=== PATIENT | male | born 1950 | race Caucasian/White ===

== ENCOUNTER 2020-10-05 20:53 | Inpatient (IN) | payer MEDICARE, OTHER ==
[~2020-10-05] VITALS: Ht 177.8 cm; Wt 92.0 kg
--- NOTE | 2020-10-05 21:05 | NUR ---
PER VEBAL ORDERS BY DR RIVERA CONTINUE LEVOPHED GTT STARTED BY EMS ON PERIPERAL LINE UNTIL ABLE TO OBTAIN CENTRAL LINE AND MEDICATION FROM PHARMACY.
--- NOTE | 2020-10-05 21:05 | NUR ---
COIVD AND FLU NEGATIVE AT READER
[2020-10-05] MEDS ORDERED: LIDOCAINE-MPF 1%, 5ML ONE (21:10)
--- NOTE | 2020-10-05 21:17 | NUR ---
LATE ENTRY. PT TRANSFER FROM [facility] FOR CHOLEYCYSITIS. PER EMS REPORT PT FOUND ALTERED BY AT HOME WITH TEMP OF 106 AND COMPLAINTS OF FATIGUE, MUSCLE ACHES, N/V, AND FEVER/CHILLS. LEVOPHED GTT STARTED BY EMS FOR LOW BP, 32MCG/ML UPON ARRIVAL TRANSFUSING THROUGH PIV. PT RECEIVED 1.5 G TYLENOL, 1 G ROCEPHIN, 4.5 G PIPERCILLIN, 2 L NS BOLUS, 2 L LR BOLUS, AND TOTAL 8 MG ZOFRAN AT PREVIOUS FACILITY. PT ALSO HAD FRYE PLACED. PT IS ANSWERING ORIENTATION QUESTIONS APPROPRIATELY AND FOLLOWING COMMANDS.
--- NOTE | 2020-10-05 21:29 | NUR ---
Henny [phone]
[2020-10-05] MEDS ORDERED: SODIUM CHLORIDE FLUSH 10ML SYR IVF ONE (21:30)
[2020-10-05] MEDS ORDERED: NOREPINEPHRINE 8 MG in SODIUM CHLORIDE 0.9% 242 ML IV PRN (21:30)
[2020-10-05] MEDS ORDERED: SODIUM CHLORIDE 0.9% 1,000ML IVBOLUS ONE (21:30)
[2020-10-05 21:45] LABS: MEAN CORPUSCULAR HEMOGLOBIN 31.7 pg (27.5-34.5); MEAN CORPUSCULAR HGB CONC 33.7 g/dL (33.2-36.2); PLATELET COUNT 193 x10^3/uL (130-400); RED BLOOD COUNT 3.79 x10^6/uL (4.38-5.82); RED CELL DISTRIBUTION WIDTH 13.1 % (9.4-14.8)
--- NOTE | 2020-10-05 21:54 | NUR ---
PT TOLERATED CENTRAL LINE PLACEMENT WELL, NO DISTRESS. PT CONNECTED TO [employer] MONITOR. CALL LIGHT WITHIN REACH
[2020-10-05 21:55] LABS: MD YES
--- NOTE | 2020-10-05 21:55 | NUR ---
US AT BEDSIDE
[2020-10-05 21:57] LABS: ALANINE AMINOTRANSFERASE 129 U/L (12-78); ALBUMIN 2.2 g/dL (3.4-5.0); ANION GAP 10 mmol/L (5-15); CALCIUM 7.5 mg/dL (8.5-10.1); CHLORIDE 121 mmol/L (98-107); CREATININE 3.59 mg/dL (0.7-1.3)
[2020-10-05 21:59] LABS: ALKALINE PHOSPHATASE 270 U/L (45-117); BILIRUBIN,TOTAL 4.4 mg/dL (0.2-1.0); TOTAL PROTEIN 5.1 g/dL (6.4-8.2)
--- NOTE | 2020-10-05 22:00 | NUR ---
PER ERP DR RIVERA RUN NS AT 200 MLS/HR.
--- NOTE | 2020-10-05 22:17 | NUR ---
XRAY IN ROOM
[2020-10-05 22:25] LABS: BAND#(MANUAL) 5.47 x10^3/uL; BANDS%(MANUAL) 24 % (0-7); LYMPH#(MANUAL) 0.23 x10^3/uL (1-3.4); LYMPHS% (MANUAL) 1 % (22-44); METAMYELOCYTES# (MANUAL) 0.23 x10^3/uL (0-0); METAMYELOCYTES% (MANUAL) 1 % (0-1); MONOS#(MANUAL) 0.68 x10^3/uL (0.3-2.7); MONOS% (MANUAL) 3 % (2-9); SEG#(MANUAL) 16.19 x10^3/uL (1.8-6.8); SEGS% (MANUAL) 71 % (42-75)
[2020-10-05 22:26] LABS: <PLATELET ESTIMATE> ADEQUATE; <PLT MORPHOLOGY> NORMAL PLT MORPH; <RBC MORPHOLOGY> NORMAL
--- NOTE | 2020-10-05 22:28 | NUR ---
PER DR NICOLE CHAND TO USE CENTRAL LINE. LEVOPHED GTT NOW INFUSING THROUGH CENTRAL LINE
[2020-10-05 22:36] LABS: INTERNATIONAL NORMALIZED RATIO 1.2 (0.93-1.1); PROTHROMBIN TIME 12.7 Seconds (9.6-11.5)
[2020-10-05] MEDS ORDERED: PIPERACILLIN/TAZO/PMX 3.375GM 50 ML ONE (23:11)
[2020-10-05] MEDS ORDERED: PIPERACILLIN/TAZO/PMX 3.375GM 50 ML IV ONE (23:30)
--- NOTE | 2020-10-05 23:43 | NUR ---
PT SLEEPING, NO NEEDS AT THIS TIME. CALL LIGHT WITHIN REACH
[2020-10-06] MEDS ORDERED: morphine SULFATE 10 MG/ML, 1ML IVPush PRN
[2020-10-06] MEDS ORDERED: LACTATED RINGERS 1,000 ML IV SCH
[2020-10-06] MEDS ORDERED: PHARMACY MAY ADJ FOR RENAL FX MC PRN
[2020-10-06] MEDS ORDERED: NOREPINEPHRINE 8 MG in SODIUM CHLORIDE 0.9% 242 ML IV PRN
[2020-10-06] MEDS ORDERED: ONDANSETRON 2MG/ML, 2ML IVPush PRN
[2020-10-06] MEDS ORDERED: ACETAMINOPHEN 325 MG TABLET PO PRN
--- NOTE | 2020-10-06 00:07 | NUR ---
REPORT GIVEN TO SHARRI LLAMAS
[2020-10-06 01:01] VITALS: BP 94/62
[2020-10-06 04:41] LABS: MEAN CORPUSCULAR HEMOGLOBIN 31.8 pg (27.5-34.5); MEAN CORPUSCULAR HGB CONC 33.8 g/dL (33.2-36.2); PLATELET COUNT 252 x10^3/uL (130-400); RED BLOOD COUNT 3.87 x10^6/uL (4.38-5.82); RED CELL DISTRIBUTION WIDTH 13.2 % (9.4-14.8)
[2020-10-06 04:52] LABS: CHLORIDE 124 mmol/L (98-107)
[2020-10-06 04:58] LABS: ALANINE AMINOTRANSFERASE 153 U/L (12-78); ALBUMIN 2.4 g/dL (3.4-5.0); ALKALINE PHOSPHATASE 259 U/L (45-117); ANION GAP 6 mmol/L (5-15); BILIRUBIN,TOTAL 4.7 mg/dL (0.2-1.0); CALCIUM 7.6 mg/dL (8.5-10.1); CREATININE 3.55 mg/dL (0.7-1.3); TOTAL PROTEIN 5.5 g/dL (6.4-8.2)
[2020-10-06] MEDS: PIPERACILLIN/TAZO/PMX 3.375GM 50 ML IV SCH ×4 (05:15→23:18)
[2020-10-06 05:59] LABS: MD YES
[2020-10-06 06:01] LABS: LYMPH#(MANUAL) 0.48 x10^3/uL (1-3.4); LYMPHS% (MANUAL) 1 % (22-44); METAMYELOCYTES# (MANUAL) 0.48 x10^3/uL (0-0); METAMYELOCYTES% (MANUAL) 1 % (0-1); SEGS% (MANUAL) 80 % (42-75)
[2020-10-06 06:02] LABS: BANDS%(MANUAL) 15 % (0-7); MONOS#(MANUAL) 1.44 x10^3/uL (0.3-2.7); MONOS% (MANUAL) 3 % (2-9)
[2020-10-06 06:03] LABS: <PLATELET ESTIMATE> ADEQUATE; <PLT MORPHOLOGY> NORMAL PLT MORPH; <RBC MORPHOLOGY> NORMAL; PMNS WITH VACUOLES 1+
[2020-10-06] MEDS: SODIUM BICARBONATE 8.4% 150 MEQ in DEXTROSE 5% 1,000 ML IV SCH ×3 (06:26→22:35)
[2020-10-06 08:00] VITALS: BP 123/49
[2020-10-06] MEDS ORDERED: MAGNESIUM SULFATE PMX 2GM/50ML 50 ML IV ONE (08:30)
[2020-10-06 14:32] VITALS: BP 101/59
[2020-10-07 04:33] LABS: MEAN CORPUSCULAR HEMOGLOBIN 31.9 pg (27.5-34.5); MEAN CORPUSCULAR HGB CONC 34.7 g/dL (33.2-36.2); MEAN PLATELET VOLUME 9.5 fL (7.4-10.4); PLATELET COUNT 162 x10^3/uL (130-400); RED BLOOD COUNT 3.43 x10^6/uL (4.38-5.82); RED CELL DISTRIBUTION WIDTH 13.1 % (9.4-14.8)
[2020-10-07 04:48] LABS: ALANINE AMINOTRANSFERASE 113 U/L (12-78); ANION GAP 5 mmol/L (5-15); CALCIUM 7.5 mg/dL (8.5-10.1); CHLORIDE 116 mmol/L (98-107); CREATININE 3.27 mg/dL (0.7-1.3)
[2020-10-07 04:50] LABS: ALKALINE PHOSPHATASE 195 U/L (45-117); BILIRUBIN,TOTAL 3.1 mg/dL (0.2-1.0); TOTAL PROTEIN 5.2 g/dL (6.4-8.2)
[2020-10-07] MEDS: PIPERACILLIN/TAZO/PMX 3.375GM 50 ML IV SCH ×4 (04:57→22:55)
[2020-10-07 05:39] LABS: MD YES
[2020-10-07 05:43] LABS: ANISOCYTOSIS 1+; BAND#(MANUAL) 2.93 x10^3/uL; BANDS%(MANUAL) 12 % (0-7); BASOS#(MANUAL) 0.24 x10^3/uL (0-0.1); BASOS% (MANUAL) 1 % (0-1); EOS#(MANUAL) 0.24 x10^3/uL (0.0-0.4); EOS% (MANUAL) 1 % (1-7); LYMPH#(MANUAL) 0.98 x10^3/uL (1-3.4); LYMPHS% (MANUAL) 4 % (22-44); METAMYELOCYTES# (MANUAL) 0.24 x10^3/uL (0-0); METAMYELOCYTES% (MANUAL) 1 % (0-1); MONOS#(MANUAL) 0.73 x10^3/uL (0.3-2.7); MONOS% (MANUAL) 3 % (2-9); SEG#(MANUAL) 19.03 x10^3/uL (1.8-6.8); SEGS% (MANUAL) 78 % (42-75)
[2020-10-07 05:44] LABS: <PLATELET ESTIMATE> ADEQUATE; PMNS WITH VACUOLES 1+
[2020-10-07 05:45] LABS: <PLT MORPHOLOGY> NORMAL PLT MORPH; TOXIC GRAN 1+
[2020-10-07] MEDS: SODIUM BICARBONATE 8.4% 150 MEQ in DEXTROSE 5% 1,000 ML IV SCH (05:54)
[2020-10-07] MEDS ORDERED: LACTATED RINGERS 1,000 ML IV SCH (06:30)
[2020-10-07] MEDS ORDERED: BUPIVACAINE/PF 0.5% ONE (10:47)
[2020-10-07] MEDS ORDERED: EPINEPHRINE 1 MG/ML, 1ML ONE (10:47)
[2020-10-07] MEDS ORDERED: FENTANYL PF 250 MCG/5ML ONE (11:05)
[2020-10-07] MEDS ORDERED: DEXAMETHASONE 4 MG/ML, 1ML ONE (11:22)
[2020-10-07] MEDS ORDERED: SUGAMMADEX 200 MG/2 ML IVPush ONE (11:22)
[2020-10-07] MEDS ORDERED: PHENYLEPHRINE 10 MG/ML ONE (11:22)
[2020-10-07] MEDS ORDERED: ALBUMIN HUMAN 5% 500 ML ONE (12:36)
[2020-10-07] MEDS ORDERED: PROMETHAZINE 25 MG/ML, 1ML IVPush PRN (13:00)
[2020-10-07] MEDS ORDERED: ACETAMINOPHEN 325 MG TABLET PO PRN (13:00)
[2020-10-07] MEDS ORDERED: ALBUTEROL SULFATE 2.5 MG/3 ML NPPB PRN (13:00)
[2020-10-07] MEDS ORDERED: MEPERIDINE/PF 25MG/0.5ML IVPush PRN (13:00)
[2020-10-07] MEDS ORDERED: HYDROmorphone 1 MG/ML, 1ML INJ IVPush PRN (13:00)
[2020-10-07] MEDS ORDERED: LORazepam 2 MG/ML, 1ML IVPush PRN (13:00)
[2020-10-07] MEDS ORDERED: LABETALOL 5MG/ML, 20ML IV PRN (13:00)
[2020-10-07] MEDS ORDERED: hydrALAzine 20 MG/ML, 1ML IV PRN (13:00)
[2020-10-07] MEDS ORDERED: OXYcodone 5 MG/5 ML ORAL.SOL UDC PO PRN (13:00)
[2020-10-07] MEDS ORDERED: GLYCOPYRROLATE 0.2MG/1ML, 5ML ONE (13:13)
[2020-10-07] MEDS ORDERED: CEFAZOLIN 1,000 MG ONE (13:13)
[2020-10-07] MEDS ORDERED: ONDANSETRON 2MG/ML, 2ML ONE (13:13)
[2020-10-07] MEDS ORDERED: ROCURONIUM 10MG/ML,5ML ONE (13:13)
[2020-10-07] MEDS ORDERED: PROPOFOL 10 MG/ML, 20ML ONE (13:13)
[2020-10-07] MEDS ORDERED: NEOSTIGMINE 1 MG/ML, 10ML ONE (13:13)
[2020-10-07] MEDS ORDERED: FENTANYL PF 100 MCG/2ML ONE ×2 (13:39→14:05)
[2020-10-07] MEDS: FENTANYL PF 100 MCG/2ML IV PRN ×3 (13:43→14:07)
[2020-10-07 14:02] VITALS: BP 129/72
[2020-10-07] MEDS ORDERED: OXYcodone 5 MG/5 ML ORAL.SOL UDC ONE (14:08)
[2020-10-07 14:17] VITALS: BP 126/70
[2020-10-07] MEDS: OXYcodone IR 5MG TABLET PO PRN ×2 (16:06→20:32)
[2020-10-07 16:30] VITALS: BP 123/73
[2020-10-07 17:30] VITALS: BP 122/78
[2020-10-08 04:50] LABS: BASOPHILS % (AUTO) 0 % (0-1); EOSINOPHILS % (AUTO) 0 % (1-7); LYMPHOCYTES % (AUTO) 2 % (22-44); MEAN CORPUSCULAR HEMOGLOBIN 31.9 pg (27.5-34.5); MEAN CORPUSCULAR HGB CONC 34.8 g/dL (33.2-36.2); MEAN PLATELET VOLUME 9.7 fL (7.4-10.4); MONOCYTES % (AUTO) 2 % (2-9); NEUTROPHILS % (AUTO) 96 % (42-75); PLATELET COUNT 153 x10^3/uL (130-400); RED BLOOD COUNT 3.29 x10^6/uL (4.38-5.82); RED CELL DISTRIBUTION WIDTH 14.2 % (9.4-14.8)
[2020-10-08] MEDS: PIPERACILLIN/TAZO/PMX 3.375GM 50 ML IV SCH ×2 (04:50→11:17)
[2020-10-08 05:04] LABS: CHLORIDE 112 mmol/L (98-107)
[2020-10-08 05:08] LABS: ALANINE AMINOTRANSFERASE 129 U/L (12-78); ALBUMIN 2.3 g/dL (3.4-5.0); ALKALINE PHOSPHATASE 171 U/L (45-117); ANION GAP 9 mmol/L (5-15); BILIRUBIN,TOTAL 2.5 mg/dL (0.2-1.0); CALCIUM 8.1 mg/dL (8.5-10.1); CREATININE 2.82 mg/dL (0.7-1.3); TOTAL PROTEIN 5.7 g/dL (6.4-8.2)
[2020-10-08 05:41] LABS: MD YES
[2020-10-08 05:43] LABS: BAND#(MANUAL) 1.38 x10^3/uL; BANDS%(MANUAL) 9 % (0-7); LYMPH#(MANUAL) 0.31 x10^3/uL (1-3.4); LYMPHS% (MANUAL) 2 % (22-44); SEG#(MANUAL) 13.62 x10^3/uL (1.8-6.8); SEGS% (MANUAL) 89 % (42-75)
[2020-10-08 05:44] LABS: <PLATELET ESTIMATE> ADEQUATE; <PLT MORPHOLOGY> NORMAL PLT MORPH; <RBC MORPHOLOGY> NORMAL
[2020-10-08] MEDS: OXYcodone IR 5MG TABLET PO PRN ×2 (11:16→17:10)
[2020-10-08 15:41] VITALS: BP 156/85
[2020-10-08] MEDS: CEFTRIAXONE PMX 2GM/50ML 50 ML IVPB SCH (17:06)
[2020-10-08 19:43] VITALS: BP 119/74
[2020-10-09 00:45] VITALS: BP 174/89
[2020-10-09 01:02] VITALS: BP 137/68
[2020-10-09 05:41] LABS: ALBUMIN 2.2 g/dL (3.4-5.0); ANION GAP 5 mmol/L (5-15); CALCIUM 8.4 mg/dL (8.5-10.1); CHLORIDE 114 mmol/L (98-107)
[2020-10-09 05:44] LABS: ALANINE AMINOTRANSFERASE 113 U/L (12-78); ALKALINE PHOSPHATASE 195 U/L (45-117); BILIRUBIN,TOTAL 1.7 mg/dL (0.2-1.0); CREATININE 2.44 mg/dL (0.7-1.3); TOTAL PROTEIN 5.7 g/dL (6.4-8.2)
[2020-10-09 05:53] LABS: MEAN CORPUSCULAR HEMOGLOBIN 31.2 pg (27.5-34.5); MEAN CORPUSCULAR HGB CONC 34.1 g/dL (33.2-36.2); MEAN PLATELET VOLUME 10.4 fL (7.4-10.4); PLATELET COUNT 152 x10^3/uL (130-400); RED BLOOD COUNT 3.16 x10^6/uL (4.38-5.82); RED CELL DISTRIBUTION WIDTH 13.8 % (9.4-14.8)
[2020-10-09 06:59] LABS: MD YES
[2020-10-09 07:02] LABS: BAND#(MANUAL) 0.16 x10^3/uL; BANDS%(MANUAL) 1 % (0-7); HYPOCHROMIA 1+; LYMPH#(MANUAL) 0.49 x10^3/uL (1-3.4); LYMPHS% (MANUAL) 3 % (22-44); MONOS#(MANUAL) 0.16 x10^3/uL (0.3-2.7); MONOS% (MANUAL) 1 % (2-9); SEG#(MANUAL) 15.39 x10^3/uL (1.8-6.8); SEGS% (MANUAL) 95 % (42-75)
[2020-10-09 07:03] LABS: STOMATOCYTES 1+
[2020-10-09 07:04] LABS: <PLATELET ESTIMATE> ADEQUATE; <PLT MORPHOLOGY> NORMAL PLT MORPH
[2020-10-09 08:55] VITALS: BP 127/73
[2020-10-09 12:40] VITALS: BP 136/88
[2020-10-09] MEDS: CEFTRIAXONE PMX 2GM/50ML 50 ML IVPB SCH (17:02)
[2020-10-09 20:53] VITALS: BP 131/76
[2020-10-10 02:05] VITALS: BP 147/85
[2020-10-10 08:00] VITALS: BP 134/78
[2020-10-10 14:45] VITALS: BP 130/84
[2020-10-10] MEDS: CEFTRIAXONE PMX 2GM/50ML 50 ML IVPB SCH (16:38)
[2020-10-10 20:29] VITALS: BP 143/77
[2020-10-11 01:21] VITALS: BP 138/80
[2020-10-11 07:12] LABS: MEAN CORPUSCULAR HEMOGLOBIN 31.6 pg (27.5-34.5); MEAN CORPUSCULAR HGB CONC 34.6 g/dL (33.2-36.2); MEAN PLATELET VOLUME 9.8 fL (7.4-10.4); PLATELET COUNT 173 x10^3/uL (130-400); RED CELL DISTRIBUTION WIDTH 13.5 % (9.4-14.8)
[2020-10-11 07:25] LABS: ALANINE AMINOTRANSFERASE 147 U/L (12-78); ALBUMIN 2.5 g/dL (3.4-5.0); ANION GAP 7 mmol/L (5-15); CALCIUM 7.9 mg/dL (8.5-10.1); CHLORIDE 111 mmol/L (98-107); CREATININE 1.64 mg/dL (0.7-1.3)
[2020-10-11 07:28] LABS: ALKALINE PHOSPHATASE 183 U/L (45-117); BILIRUBIN,TOTAL 1.5 mg/dL (0.2-1.0); TOTAL PROTEIN 6.1 g/dL (6.4-8.2)
[2020-10-11 07:46] LABS: MD YES
[2020-10-11 07:48] LABS: BAND#(MANUAL) 0.07 x10^3/uL; BANDS%(MANUAL) 1 % (0-7); EOS#(MANUAL) 0.07 x10^3/uL (0.0-0.4); EOS% (MANUAL) 1 % (1-7); LYMPH#(MANUAL) 0.54 x10^3/uL (1-3.4); LYMPHS% (MANUAL) 8 % (22-44); METAMYELOCYTES% (MANUAL) 3 % (0-1); MONOS#(MANUAL) 0.48 x10^3/uL (0.3-2.7); MONOS% (MANUAL) 7 % (2-9); SEG#(MANUAL) 5.44 x10^3/uL (1.8-6.8); SEGS% (MANUAL) 80 % (42-75)
[2020-10-11 07:49] LABS: <PLATELET ESTIMATE> ADEQUATE; <PLT MORPHOLOGY> NORMAL PLT MORPH; POLYCHROMASIA 1+
[2020-10-11 09:22] VITALS: BP 145/82
[2020-10-11] MEDS: POTASSIUM CHLORIDE 20 MEQ TAB.ER.PRT PO SCH ×3 (10:46→14:09)
[2020-10-11 12:45] VITALS: BP 134/82
[2020-10-11] MEDS ORDERED: CEFD300C37 PO (13:26)
[2020-10-11] MEDS ORDERED: POTASSIUM CHLORIDE 10 MEQ TABLET.ER ONE (14:07)
== END 2020-10-11 14:50 | disposition home or self-care (01) | DRG 853 ==
LOC: ED 22:12 → EDIP 23:27 → CCU 10-06 00:26 → 4NE 10-08 12:51 → DCLOUNGE 10-11 14:38
PROVIDERS: ADMIT Family Medicine; ATTEND Internal Medicine
PROC: 05HM33Z Insertion of Infusion Device into Right Internal Jugular Vein, Percutaneous Approach (ICD-10-PCS; 2020-10-05)
PROC: B543ZZA Ultrasonography of Right Jugular Veins, Guidance (ICD-10-PCS; 2020-10-05)
PROC: 30233N1 Transfusion of Nonautologous Red Blood Cells into Peripheral Vein, Percutaneous Approach (ICD-10-PCS; 2020-10-07)
PROC: 0FT44ZZ Resection of Gallbladder, Percutaneous Endoscopic Approach (ICD-10-PCS; principal; 2020-10-07 11:30)
DX: A41.9 Sepsis, unspecified organism (principal); R65.21 Severe sepsis with septic shock; G92 Toxic encephalopathy; N17.0 Acute kidney failure with tubular necrosis; K83.09 Other cholangitis; K56.7 Ileus, unspecified; K80.13 Calculus of gallbladder with acute and chronic cholecystitis with obstruction; D64.9 Anemia, unspecified; D72.823 Leukemoid reaction; I10 Essential (primary) hypertension; K75.9 Inflammatory liver disease, unspecified; K76.0 Fatty (change of) liver, not elsewhere classified; N28.1 Cyst of kidney, acquired; B96.20 Unspecified Escherichia coli [E. coli] as the cause of diseases classified elsewhere; Z20.822 Contact with and (suspected) exposure to COVID-19
CPT/HCPCS: 36415; 36430; 36556; 71045; 74018; 74181; 76700; 78226; 80053; 82140; 83605; 83690; 83735; 84100; 84145; 85014; 85018; 85025; 85610; 85730; 86850; 86900; 86923; 87040; 87081; 87635; 88304; 93005; 99291; G0378; J0171; J0690; J0696; J1100; J2405; J2543; J2704; J2710; J3010; J7070; P9045; A9537; C1760; J2370; J3475; J7030; J7050; J7120; P9016